=== PATIENT | male | born 1955 | race Caucasian/White ===

== ENCOUNTER → 2017-07-13 | Outpatient (CLI) | payer OTHER ==
[~2017-07-13] MED LIST: /WARF25TA PO; ADV250INH INH; BACL10TA2 PO; CATA0.1T PO; CELE40TA PO; COZA100T2 PO; LEVO25TA5 PO; LOSA100T5 PO; METF10004 PO; METF500T13 PO; METO25TA4 PO; OXYCONTIN PO; PANT20TA PO; PERCOCET PO; TYLE325T5 PO; protonix OR; rescue inhaler
[2017-07-13 10:50] LABS: MEAN CORPUSCULAR HEMOGLOBIN 31.4 pg (27.0-33.0); MEAN CORPUSCULAR HGB CONC 33.9 g/dl (32.0-36.5); MEAN CORPUSCULAR VOLUME 92.5 fl (80.0-96.0); PLATELET COUNT, AUTOMATED 281 10^3/uL (150-450); RED CELL DISTRIBUTION WIDTH 13.4 % (11.5-14.5); WHITE BLOOD COUNT 8.7 10^3/uL (4.0-10.0)
[2017-07-13 11:01] LABS: INR 0.93
[2017-07-13 11:09] LABS: ERYTHROCYTE SEDIMENTATION RATE 2 mm/hr (0-20)
[2017-07-13 11:41] LABS: ALBUMIN 4.2 GM/DL (3.2-5.2); ALBUMIN/GLOBULIN RATIO 1.17 (1.00-1.93); ALKALINE PHOSPHATASE 74 U/L (45-117); ALT/SGPT 27 U/L (12-78); ANION GAP 8 MEQ/L (8-16); AST/SGOT 17 U/L (7-37); BILIRUBIN,TOTAL 0.5 MG/DL (0.2-1.0); BLOOD UREA NITROGEN 25 MG/DL (7-18); CALCIUM LEVEL 9.1 MG/DL (8.8-10.2); CARBON DIOXIDE LEVEL 28 MEQ/L (21-32); CHLORIDE LEVEL 104 MEQ/L (98-107); CREATININE FOR GFR 1.14 MG/DL (0.70-1.30); GLOMERULAR FILTRATION RATE > 60.0 (>49); GLUCOSE, FASTING 114 MG/DL (80-110); POTASSIUM SERUM 4.1 MEQ/L (3.5-5.1); SODIUM LEVEL 140 MEQ/L (136-145); TOTAL PROTEIN 7.8 GM/DL (6.4-8.2)
--- NOTE | 2017-07-13 19:15 | ECGEPIP ---
Stationary ECG Study [facility] Test Date: 2017-07-13 Pat Name: FARHAT BRICENO Department: Room: - Gender: M Certified Nursing Assistant: : 1955 Requested By: Dorothy Kennedy Order Number: [id number] Reading MD: Parth Dempsey Measurements Intervals [place] Rate: 66 P: 24 IN: 162 QRS: 1 QRSD: 96 T: 12 QT: 387 QTc: 405 Interpretive Statements SINUS RHYTHM No significant change when compared to prior tracing of 10-31-2012 Electronically Signed On 07-13-2017 19:15:03 EST by Parth Dempsey
--- NOTE | 2017-07-14 02:06 | REP ---
Clinical: preoperative assessment. Comparison: 10/31/2012. Technique: PA and lateral. Findings: The mediastinum and cardiac silhouette are normal. The lung junior are clear and without acute consolidation, effusion, or pneumothorax. The skeletal structures are intact and normal. Impression: 1. No acute cardiopulmonary process. Signed by Yaw Mcclain MD 07/14/2017 01:57 A
== END ==
LOC: M ADMPAT 08:50
PROVIDERS: ATTEND Orthopaedic Surgery
DX: Z01.818 Encounter for other preprocedural examination (principal)

== ENCOUNTER 2017-08-11 05:38 | Inpatient (IN) | payer OTHER ==
[2017-08-11 06:29] LABS: GLUCOSE, FASTING 119 MG/DL (80-110)
[2017-08-11] MEDS: LR 1,000 ML IV ×4 (06:58→22:43)
[2017-08-11] MEDS: ACETAMINOPHEN 500 MG TAB PO (06:58)
[2017-08-11] MEDS ORDERED: fentaNYL 100 MCG/2 ML INJECTION (J3010) As Ordered (07:51)
[2017-08-11] MEDS ORDERED: LIDOCAINE 2% INJ 100 MG/5 ML SDV (FOR ANES.) As Ordered (07:51)
[2017-08-11] MEDS ORDERED: PROPOFOL 200 MG/20 ML VIAL As Ordered ×4 (07:51→08:34)
[2017-08-11] MEDS ORDERED: MIDAZOLAM INJ 2 MG/2 ML VIAL (J2250) As Ordered (07:51)
[2017-08-11] MEDS ORDERED: ONDANSETRON 4MG/2ML VIAL (J2405) As Ordered ×2 (07:51→10:02)
[2017-08-11] MEDS ORDERED: ePHEDrine SULFATE 25 MG/5 ML(5MG/ML) SYRINGE As Ordered (08:05)
[2017-08-11] MEDS: ceFAZolin 1GM INJ (J0690 PER 500MG) As Ordered (08:14)
[2017-08-11] MEDS: TRANEXAMIC ACID 100 MG/ML 10ML VIAL As Ordered (08:15)
[2017-08-11] MEDS: EPINEPHrine INJ 1 MG/ML 1ML AMP As Ordered (08:15)
[2017-08-11] MEDS ORDERED: PHENYLephrine HCL 500 MCG/5 ML (100MCG/ML) SYRINGE (J2370) As Ordered (08:28)
[2017-08-11] MEDS ORDERED: MORPHINE 1MG/ML IN 0.9% NACL 100ML IV BAG As Ordered (10:02)
[2017-08-11] MEDS: ONDANSETRON 4MG/2ML VIAL (J2405) IV ×2 (10:15→21:13)
[2017-08-11] MEDS: MORPHINE 1MG/ML IN 0.9% NACL 100ML IV BAG IV (10:15)
[2017-08-11] MEDS ORDERED: fentaNYL 100 MCG/2 ML INJECTION (J3010) IV (10:45)
[2017-08-11] MEDS ORDERED: NALOXONE INJ 0.4 MG/1 ML VIAL (J2310) IV (10:45)
[2017-08-11] MEDS ORDERED: NALBUPHINE HCL 10 MG/ML AMP (J2300) IV (10:45)
[2017-08-11] MEDS ORDERED: METOCLOPRAMIDE INJ 10MG/2ML VIAL (J2765) IV (10:45)
[2017-08-11] MEDS ORDERED: PERCOCET 5MG/325MG TAB PO (10:45)
[2017-08-11] MEDS ORDERED: diphenhydrAMINE INJ 50MG/ML VIAL (J1200) IV (10:45)
[2017-08-11] MEDS ORDERED: ACETAMINOPHEN TAB 650MG DOSE (2X325MG) PO (10:45)
[2017-08-11] MEDS ORDERED: FLEET ENEMA PR (10:45)
[2017-08-11] MEDS ORDERED: MORPHINE 10 MG/ML 1ML VIAL IV (10:45)
[2017-08-11] MEDS ORDERED: ONDANSETRON 4MG/2ML VIAL (J2405) IV (10:45)
[2017-08-11] MEDS ORDERED: EPIDURAL/PCA KEYS XX (10:45)
[2017-08-11 12:18] LABS: BEDSIDE GLUCOSE 152 MG/DL (80-115)
[2017-08-11] MEDS ORDERED: GLUCOSE 4 GM CHEW TABLET PO (14:00)
[2017-08-11] MEDS ORDERED: ALBUTEROL SULFATE 2.5 MG/0.5 ML INH NEB SOLN INH (14:00)
[2017-08-11] MEDS ORDERED: DEXTROSE 50% 50 ML SYRINGE IV (14:00)
[2017-08-11] MEDS ORDERED: GLUCAGON FOR INJ 1 MG VIAL (J1610) SC (14:00)
[2017-08-11] MEDS: WARFARIN SOD 5 MG TAB PO (17:57)
[2017-08-11] MEDS: HumaLOG INSULIN (NovoLOG) PER UNIT SC ×2 (17:57→20:57)
[2017-08-11 18:09] LABS: BEDSIDE GLUCOSE 173 MG/DL (80-115)
[2017-08-11 20:23] LABS: BEDSIDE GLUCOSE 146 MG/DL (80-115)
[2017-08-11] MEDS: ADVAIR HFA 230/21MCG INHALER INH (20:30)
[2017-08-11] MEDS: METOPROLOL TART 25 MG TABLET PO (21:05)
[2017-08-12] MEDS: LEVOTHYROXINE 25MCG TABLET (0.025MG) PO (06:13)
[2017-08-12] MEDS ORDERED: PERCOCET 5MG/325MG TAB PO (06:45)
[2017-08-12 06:50] LABS: HEMATOCRIT 43.5 % (42.0-52.0); HEMOGLOBIN 14.4 g/dl (14.0-18.0); MEAN CORPUSCULAR HGB CONC 33.1 g/dl (32.0-36.5); MEAN CORPUSCULAR VOLUME 93.5 fl (80.0-96.0); PLATELET COUNT, AUTOMATED 263 10^3/uL (150-450); RED BLOOD COUNT 4.65 10^6/uL (4.30-6.10); RED CELL DISTRIBUTION WIDTH 13.3 % (11.5-14.5); WHITE BLOOD COUNT 11.8 10^3/uL (4.0-10.0)
[2017-08-12 07:06] LABS: ANION GAP 8 MEQ/L (8-16); BLOOD UREA NITROGEN 19 MG/DL (7-18); CALCIUM LEVEL 8.7 MG/DL (8.8-10.2); CARBON DIOXIDE LEVEL 31 MEQ/L (21-32); CHLORIDE LEVEL 99 MEQ/L (98-107); CREATININE FOR GFR 1.12 MG/DL (0.70-1.30); GLOMERULAR FILTRATION RATE > 60.0 (>49); GLUCOSE, FASTING 136 MG/DL (80-110); POTASSIUM SERUM 3.9 MEQ/L (3.5-5.1); SODIUM LEVEL 138 MEQ/L (136-145)
[2017-08-12 07:09] LABS: INR 1.28; PROTHROMBIN TIME 16.3 SECONDS (12.4-14.5)
[2017-08-12] MEDS: HumaLOG INSULIN (NovoLOG) PER UNIT SC ×2 (07:30→12:05)
[2017-08-12] MEDS: ADVAIR HFA 230/21MCG INHALER INH (07:32)
[2017-08-12] MEDS: CitaloPRAM (CeleXA) 20 MG TAB PO (08:48)
[2017-08-12] MEDS: MOM 30ML SUSPENSION UDC PO (08:48)
[2017-08-12] MEDS: ONDANSETRON 4 MG TAB (S0181) PO (08:48)
[2017-08-12] MEDS: SENOKOT S TAB PO (08:48)
[2017-08-12] MEDS: MIRALAX *UNIT DOSE* 17GM PACKET PO (08:48)
[2017-08-12] MEDS: PANTOPRAZOLE 20 MG TAB PO (08:49)
[2017-08-12] MEDS: PERCOCET 5MG/325MG TAB PO (08:49)
[2017-08-12 11:59] LABS: BEDSIDE GLUCOSE 198 MG/DL (80-115)
[2017-08-12] MEDS ORDERED: WARFARIN SOD 7.5 MG TAB PO (17:00)
[2017-08-12] MEDS ORDERED: WARFARIN SOD 5 MG TAB PO (17:00)
== END 2017-08-12 13:55 | disposition home health service (06) | DRG 301 ==
LOC: M OR 05:38 → M MS5PR 11:18
PROVIDERS: Orthopaedic Surgery
PROC: 0SR902Z Replacement of Right Hip Joint with Metal on Polyethylene Synthetic Substitute, Open Approach (ICD-10-PCS; principal; 2017-08-11 07:29)
DX: M16.11 Unilateral primary osteoarthritis, right hip (principal); I10 Essential (primary) hypertension; K21.9 Gastro-esophageal reflux disease without esophagitis; F41.9 Anxiety disorder, unspecified; E03.9 Hypothyroidism, unspecified; E11.9 Type 2 diabetes mellitus without complications; J45.909 Unspecified asthma, uncomplicated; R26.89 Other abnormalities of gait and mobility; Z79.84 Long term (current) use of oral hypoglycemic drugs; Z96.652 Presence of left artificial knee joint; Z79.899 Other long term (current) drug therapy

== ENCOUNTER → 2017-08-17 | Outpatient (REF) | payer OTHER ==
[2017-08-17 11:44] LABS: INR 1.74; PROTHROMBIN TIME 20.9 SECONDS (12.4-14.5)
== END ==
LOC: M LABDRAW1 10:10
DX: Z79.01 Long term (current) use of anticoagulants (principal)

== ENCOUNTER → 2017-08-24 | Outpatient (REF) | payer OTHER ==
[2017-08-24 12:15] LABS: INR 1.44; PROTHROMBIN TIME 17.9 SECONDS (12.4-14.5)
== END ==
LOC: M LABDRAW1 10:04
DX: Z79.01 Long term (current) use of anticoagulants (principal)